=== PATIENT | female | born 1970 | race Two or more races ===

== ENCOUNTER → 2024-10-30 | Outpatient (CLI) | payer MEDICAID, SELFPAY ==
--- NOTE | 2024-10-30 12:52 | XR_ITS ---
Examination: PA lateral chest 2 views TECHNIQUE: Upright PA lateral chest 2 views Exam date and time: October 30, 2024 1259 hours INDICATIONS: Chronic hypertension diagnosis years FINDINGS: Normal heart size Lungs are clear. The osseous structures are intact IMPRESSION: No active disease
== END | disposition home or self-care (01) ==
PROVIDERS: PCP Nurse Practitioner Family; Referring Provider Nurse Practitioner Family; Visit Provider Nurse Practitioner Family
DX: I10 Essential (primary) hypertension (principal)
CPT/HCPCS: 71046

== ENCOUNTER 2024-11-06 11:55 | Day surgery (SDC) | payer MEDICAID, SELFPAY ==
--- NOTE | 2024-11-03 06:58 | EKG_ITS ---
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
[2024-11-03 07:02] VITALS: BMI 25.1
[2024-11-03 08:45] LABS: Alanine Aminotransferase 20 U/L (10-49); Albumin, Serum 4.8 gm/dL (3.5-5.0); Albumin/Globulin Ratio 1.7 (1.2-2.2); Alkaline Phosphatase 120 U/L (46-116); Anion Gap 7 (7-16); Aspartate Amino Transferase 19 U/L (0-34); BUN/Creatinine Ratio 18 Ratio (12-20); Bilirubin,Total 0.7 mg/dL (0.3-1.2); Blood Urea Nitrogen 14 mg/dL (9-23); Carbon Dioxide 30.6 mMol/L (20.0-31.0); Chloride 104 mMol/L (98-107); Creatinine (Component) 0.8 mg/dL (0.6-1.3); Estimated Creatinine Clearance 68.2 mL/min (>60); Globulin 2.8 gm/dL (2.3-3.5); Glucose 97 mg/dL (74-106); Osmolality,Calculated 283 (275-295); Potassium 3.9 mMol/L (3.4-5.1); Sodium 142 mMol/L (136-145); Total Protein 7.6 gm/dL (5.7-8.2); eGFR > 60 See Note
[2024-11-03 09:03] LABS: Basophils % (Auto) 0 % (0-2.5); Eosinophils # (Auto) 0.1 Thou/mm3 (0.0-0.5); Eosinophils % (Auto) 2 % (0-10); Hematocrit 38.8 % (36.0-46.0); Hemoglobin 13.6 g/dL (12.0-16.0); Immature Granulocytes % (Auto) 0 % (0-0); Immature Granulocytes Auto 0.02 Thou/mm3 (0.00-0.00); Lymphocytes # (Auto) 1.6 Thou/mm3 (1.0-4.8); Lymphocytes % (Auto) 31 % (10-50); Mean Corpuscular HGB Conc 35.1 g/dl (31.0-37.0); Mean Corpuscular Hemoglobin 30.1 pg (25.0-35.0); Mean Corpuscular Volume 86 fL (80-100); Monocytes # (Auto) 0.4 Thou/mm3 (0.0-0.8); Monocytes % (Auto) 7 % (0-12); Neutrophils % (Auto) 59 % (37-80); Nucleated Red Blood Cell % 0 /100 WBC (0); Platelet Count 280 Thou/mm3 (140-440); RDW Standard Deviation 38.7 fL (36.4-46.3); Red Blood Count 4.52 Miln/mm3 (4.00-5.20)
[2024-11-03 09:11] LABS: Partial Thromboplastin Time 25.1 Seconds (22.0-36.0); Prothrombin Time 10.7 Seconds (9.0-12.2)
[2024-11-06] VITALS (8 sets, daily range): BP systolic 134–174; BP diastolic 80–99; PULSE 60–106; RESP 15–20; TEMP 36.2–36.6; O2SAT 95–98; BMI 24.5
[2024-11-06] MEDS: RINGERS LACTATED 1000 ML 1,000 ML 20 ML IV (12:36)
--- NOTE | 2024-11-06 16:35 | SUR.PHASEI ---
Pt. arrived to recovery via gurney, eyes closed, responds to verbal commands, VSS, no c/o pain or nausea at this time, pt. allowed to rest, dressing to left shoulder, sutures, adaptic, fluffs, abd. pad and metaport tape in place, no active bleeding noted, arm sling in place, pt. able to move fingers on left hand, cap refill <3 seconds, report received from Ramon NAILS and Dr. Rubin.
--- NOTE | 2024-11-06 16:38 | ESOP_ITS ---
Date of Procedure 11/06/24 Pre Op Diagnosis 1. Left rotator cuff tear 2. Left shoulder impingement syndrome Post Op Diagnosis Same Procedure 1. Excision lateral end of the clavicle 2. Excision coracoacromial ligament 3. Acromioplasty 4. Repair of rotator cuff 5 manipulation under anesthesia Findings Refer dictation Procedure Description The patient was given general endotracheal anesthesia. Once satisfactory anesthesia was achieved patient was put in about 45?? sitting position with sandbag underneath the left shoulder blade. The part was thoroughly prepped and draped. Shoulder block was also given. A skin incision was made at the AC joint extending proximally towards the neck for a half inches and distally towards the arm for about couple of inches. Deeper dissection was carried out. Bleeding vessels were electrocoagulated as and when encountered. The soft tissue was reflected. Following that AC joint was exposed and AC joint was exposed. The deltoid muscle was reflected from the anterior and lateral aspect of the acromial process. There was a big osteophytes at the anterior and and lateral aspect of the acromial process. The anterior 2 mm and lateral 1 mm of the acromial process along with osteophyte was excised with the help of saw. Following that a periosteal elevator was placed underneath the lateral end of the clavicle and lateral 3-4 mm was excised. The coracoacromial ligament was removed. With the help of curved osteotome the undersurface of the Acromial processes was chiseled out. That made more room between the superior surface of the head of the humerus and undersurface of the acromial process. Following that the rotator cuff was inspected. It revealed big oval tear, however most of the fibers were attached to the greater tuberosity. Wound was irrigated with antibiotic solution every 4-5 minutes. The left shoulder was manipulated at this time. The rotator cuff tear was repaired with 2-0 Vicryl. 2 drill holes were made on the acromial process and deltoid muscle was stitched back to it. Some reinforcement sutures were placed. The subcutaneous tissue was then closed with the help of 2-0 Vicryl and 3-0 Vicryl in layers. The skin was closed with kristopher. About 18 mL of neuropen was injected at the skin incision site. After cleaning the wound with hydrogel proximal solution and sterile dressing was applied. Patient was taken to the recovery room in good condition. Estimated blood loss 10 mL. Prognosis in this case is good. Anesthesia GETA and other Pathology / specimen None Estimated Blood Loss 10 Surgeon Feroz Zamarripa MD Surgical Staff Operation Date: 11/06/24 15:00 Case Staff Anesthesiologist: Anuj Rubin RNbrazing machine operator: Roula Estrella
--- NOTE | 2024-11-06 17:40 | SUR.PHASEII ---
Pt. meets criteria for discharge, VSS, no c/o pain or nausea, dressing to left shoulder CDI, arm sling in place, IV discontinued without complications, discharge instructions provided to pt. and pt.'s with use of program rep services, pt. and pt.'s verbalized understanding, all questions answered. Pt. escorted to vehicle via w/c with all of belonging by staff.
--- NOTE | 2024-11-06 18:48 | ESHP_ITS ---
RE: TRUDI MENA : 1970 DATE OF ADMISSION: 11/06/2024 REASON FOR ADMISSION: The patient came to my office on 11/05/2024 for detailed preop history and physical examination. HISTORY OF PRESENTING COMPLAINT: The patient presented to me with history of severe pain in the left shoulder joint. The patient stated that pain started when she lifted a box full of plants and felt snap. Since then, the patient has got pain. Range of motion is restricted. Patient graded intensity of pain is 10/10. The patient is unable to sleep. The patient's quality of life as well as activities of daily living is affected. The patient wants something to be done about it. PAST MEDICAL HISTORY: The patient has history of high blood pressure. No history of diabetes mellitus, asthma, seizure, chest pain, myocardial infarction, or bleeding disorder. PAST SURGICAL HISTORY: Include cholecystectomy. DRUG HISTORY: The patient is on valsartan, meloxicam, and baclofen. ALLERGIES: NIL KNOWN. FAMILY HISTORY AND SOCIAL HISTORY: The patient denies smoking, drinking and is not working. PHYSICAL EXAMINATION: GENERAL: Normal built lady. The patient's BMI is 24.14. VITAL SIGNS: Pulse 72 per minute, blood pressure is 148/92. NECK: Soft, supple. No masses felt. Trachea is centrally placed. CARDIOVASCULAR SYSTEM: First and second heart sounds normal. No murmur heard. RESPIRATORY SYSTEM: Bilateral vesicular breath sounds. CHEST: Clear. ABDOMEN: Soft. No masses felt. Bowel sounds present. BREASTS: Breast examination is not indicated in this case. The patient is advised to see the family physician for rectal examination. EXTREMITIES: Left shoulder examination revealed 2+ tenderness at AC joint. Active range of motion is 0 to 90 degrees of abduction and 0 to 80 degrees of forward flexion. Yael test is positive. Drawer arm test is positive. Impingement test is also positive. DIAGNOSTIC DATA: MRI of the left shoulder was obtained on 07/29/2024. It revealed 20 mm full-thickness tear of the rotator cuff. There is atrophy of the supraspinatus as well as infraspinatus tendon. There are degenerative joint disease changes at AC joint. ASSESSMENT AND PLAN: Since the patient is symptomatic, therefore, left rotator cuff repair with Ishan procedure was discussed and advised. With the help of pictures, diagram and shoulder model, it was explained to her in detail. The risks with anesthesia were explained and that includes, but not limited to reaction to anesthetic agents, cardiac arrest or rarely it might be fatal. Risks with operation includes infection and if that happens, the patient will need further surgical procedure. Other risks include delayed healing, wound dehiscence, etc. Indeed, the physical therapy is a very important component for successful outcome of the procedure and full cooperation helps a lot. No guarantee is given regarding outcome of the procedure and/or pain relief and the patient is fully aware of that. The patient is okay to proceed with surgery. Surgery is booked for 11/06/2024. Appropriate lab was done. DT: 15:29:40 TT: 18:36:00 Ref: [id number] - TID: [id number]
--- NOTE | 2024-11-09 12:11 | ESPR_ITS ---
Documentation for date of: 11/09/24 POST ANESTHESIA NOTE: Patient had general LMA anesthesia and L interscalene nerve block for L rotator surgery on 11/06/24. I just called and spoke with her on the phone via historic interpreter and she denied any problems from anesthesia and was thankful. Anuj Rubin MD Anesthesia Progress Note Progress Note Most recent Vital Signs: Last Vital Signs Temp 97.2 F 11/06/24 17:15 Pulse 80 11/06/24 17:25 Resp 16 11/06/24 17:25 BP 150/83 H 11/06/24 17:25 Pulse Ox 96 11/06/24 17:25
== END 2024-11-06 17:40 | disposition home or self-care (01) ==
PROVIDERS: Anesthesiology; PCP Family Medicine; Referring Provider Orthopaedic Surgery; Visit Provider Orthopaedic Surgery
PROC: (CPT 23412; principal; 2024-11-06 15:00)
DX: M75.102 Unspecified rotator cuff tear or rupture of left shoulder, not specified as traumatic (principal); M75.42 Impingement syndrome of left shoulder; Z90.49 Acquired absence of other specified parts of digestive tract; Z01.810 Encounter for preprocedural cardiovascular examination
CPT/HCPCS: 23412; 23120; 36415; 80053; 85025; 85610; 85730; 93005; A4217; A4649; J0690; J1100; J1580; J2250; J2704; J2765; J2795; J3010; J3490; J7120

== ENCOUNTER 2024-11-12 12:43 | Emergency (ER) | payer MEDICAID, SELFPAY ==
[2024-11-12 12:47] VITALS: BP 110/78; PULSE 66; RESP 14; TEMP 36.8; O2SAT 95
--- NOTE | 2024-11-12 13:00 | XR_ITS ---
Examination: CTA chest with intravenous contrast 2-D reconstructions 3-D reconstructions, vascular Date and time of exam: November 12, 2024 1408 hours INDICATIONS: Shortness of breath syncopal episode today CTDI: vol (mGy) 12.43 DLP: (mGycm) 269.16 Technique: Multiple axial sections of the thorax have been obtained. 3 mm slice thickness, from below the hemidiaphragms to above the apices of the lungs. Mediastinal and lung density settings have been obtained. 2-D sagittal and coronal reconstructions. 3-D angiographic renderings, 3-D volume renderings, 3D post processing, vascular maximum intensity projections obtained. Contrast administered is 100 cc Isovue-370. Low dose protocols were performed. One or more of the following dose reduction techniques were used; automated exposure control, adjustment of the mA and/or KV according to patient size, use of iterative reconstruction technique. Findings: No thoracic aortic aneurysm dilatation or dissection Pulmonary artery segments are not enlarged No pulmonary artery filling defects No paratracheal tracheobronchial or bronchopulmonary adenopathy No aspiration pneumonia, no pulmonary edema Minor atelectasis left base No visualized liver or splenic lesion Absent gallbladder No pancreatic or adrenal mass IMPRESSION: Negative for pulmonary artery emboli No aspiration pneumonia
--- NOTE | 2024-11-12 13:00 | XR_ITS ---
Examination: AP chest single view Technique one AP portable upright chest single view Exam date and time: November 12, 2024 1340 hours INDICATIONS: Onset shortness of breath today. FINDINGS: Normal heart size Lungs are clear. The osseous structures are intact IMPRESSION: No active disease
--- NOTE | 2024-11-12 13:00 | EKG_ITS ---
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
--- NOTE | 2024-11-12 13:01 | XR_ITS ---
Examination: Duplex scan of the upper extremity, unilateral left Date and time of exam: November 12, 2024 1419 hours INDICATIONS: Shoulder surgery 6 days ago followed by shoulder pain and swelling Technique: Duplex scan of the extremity veins using B-mode/grayscale imaging and Doppler spectral analysis and color flow Attention is directed to internal echogenicity, compression and augmentation involving these veins, color flow assessment, spectral analysis Findings: Major deep venous structures in the extremity demonstrate normal course and caliber. There is no evidence of deep vein thrombosis. Normal color flow and spectral analysis Impression: Negative for DVT..
--- NOTE | 2024-11-12 13:01 | PD.EDCHEST ---
ED Chest Pain RME/HPI General Chief Complaint: Chest Pain Stated Complaint: CHEST PAIN/ SYNCOPE EPISODE Time Seen by Provider: 11/12/24 12:48 Arrival date/time: 11/12/24 12:43 RME / HPI RME / HPI narrative: This section includes all my notes and documentations, including HPI, PE, and ED course.? Kurtis Flannery MD HPI: 54 year old female with history of hypertension and recent repair of left rotator cuff tear on 11/06/[address] Zamarripa presents to the ED BIBA from ortho Dr. Zamarripa's office for evaluation of chest pain today. Per medics, staff at the office report patient was there for a dressing change and while changing dressing, the patient had a near syncopal episode. Shortly after began complaining of severe 10/10 pressure like chest pain, located most to the center of chest that radiates up her neck and through to her back. Medics state they administered two 81mg Aspirin, 1 Nitro paste, and 1SL Nitro with very little improvement. While in the ED patient reports her pain is 9/10. Denies fevers, chills, sweats, nausea, abdominal pain. No other complaints. ROS: All negative except as documented in HPI. Physical Exam: General:? Alert and oriented.? In severe pain. Eyes:? Conjunctivae and lids clear.? ENT:? No nasal congestion.? Neck:? Supple.? Heart:? RRR.? Chest: Palpation of the anterior chest reproduces her pain. Lungs:? No respiratory distress.? Good air movement.? No rhonchi, wheezing, rales.?? Abdomen:? Soft and nontender.?? Legs:? No clubbing, cyanosis, edema.? Skin:? Warm and dry.?? Neuro:? Alert and oriented X 3.?? I reviewed all diagnostic test results. My interpretation of the EKG is?NSR (63 bpm) with no ST-T changes. My interpretation of the chest x-ray is no active disease. My review of the venous doppler US report is negative for DVT. My review of the chest CTA report is?Negative for pulmonary artery emboli. My review of the head CT report is Negative for acute hemorrhage, mass effect or midline shift. Blood tests and urine tests?unremarkable. At this point, diagnoses include?musculoskeletal chest pain. Treatment here included?IV fluid and Zofran and Dilaudid. Significant improvement noted. Recommended supportive care. Based on my best medical judgment, made decision no further evaluation or treatment indicated at this time.? Patient understands and agrees to the discharge instructions customized and printed, see below. Discharge instructions from Dr. Flannery: 1. After extensive evaluation, there is no life-threatening condition.? Such as stroke heart attack or pulmonary embolism (blood clots in your lungs) or pneumothorax (collapsed lung) or blood clots in your arm. 2. Your pain is originating from the chest wall and not from an internal organ.? The chest wall has many joints and muscles between the ribs, so sprains and strains are common.?? 3. Apply ice or heat if helpful.? Tylenol/ibuprofen as needed. 4. See a private doctor on 03/16/24. To make sure there is no serious underlying heart condition, ask to help you get more tests for your heart that cannot be done here in the ER.? Such as Holter Monitor (cardiac monitoring at home from a day to even a month), heart stress test (on treadmill or with medication), echocardiogram (imaging of your heart structures), heart catherization (checking for blockages in your heart arteries), and a referral to see a Preschool Teacher Aide.? 5. Seek immediate medical care with worsening or with any concerns.?? Kurtis Flannery MD Related Data Home Medications ?Medication ?Instructions ?Recorded ?Confirmed valsartan 160 mg tablet 160 mg PO DAILY 11/03/24 11/06/24 Previous Rx's ?Medication ?Instructions ?Recorded hydrocodone 5 mg-acetaminophen 325 2 tab PO TID PRN pain #30 tabs 11/12/24 mg tablet Allergies Allergy/AdvReac Type Severity Reaction Status Date / Time No Known Allergies Allergy Verified 11/12/24 13:09 Review of Systems Review of Systems Systems Reviewed: All systems reviewed, normal except as documented Past Medical History Past Medical History CARDIAC: Positive Cardiac Disorders, Hypertension and Hypotension GENITOURINARY: Positive Genitourinary Disorders and Kidney Stones (many yrs ago) REPRODUCTIVE: Positive Previous Pregnancies MUSCULOSKELETAL: Positive Musculoskeletal Disorders and Arthritis OTHER HISTORY: Positive Chicken Pox Family History FAMILY HISTORY: Positive Family Cardiac Disorders and Family Surgery Surgical History SURGICAL: Positive of Shoulder Sx (L ROTATOR CUFF) and Tubal Ligation Social History SMOKING STATUS: Never smoker ED Exam Narrative Physical exam: As noted in HPI Course Quality Measures none Orders Category Date Time Status CT Screening NOW Care 11/12/24 13:00 Completed EKG (ED ONLY) *Do not use* NOW Care 11/12/24 13:00 Completed Saline [Insert IV] NOW Care 11/12/24 12:59 Completed Straight [In and Out Catheter] X1 Care 11/12/24 12:[address] angio chest Stat Exams 11/12/24 13:[address] head/brain wo con Stat Exams 11/12/24 14:03 Completed EKG (ED Only) Stat Exams 11/12/24 13:00 Draft US venous doppler UE LT Stat Exams 11/12/24 13:01 Completed XR chest 1V portable Stat Exams 11/12/24 13:00 Completed BNP [B-Type Natriuretic Peptide] Stat Lab 11/12/24 13:39 Completed CBC Stat Lab 11/12/24 13:39 Completed CMP [Comprehensive Metabolic Panel] Stat Lab 11/12/24 13:39 Completed D-Dimer Stat Lab 11/12/24 13:39 Completed Magnesium Stat Lab 11/12/24 13:39 Completed Troponin I Stat Lab 11/12/24 13:39 Completed UA, C/S IF [Urinalysis, C/S if Indicated] Stat Lab 11/12/24 15:16 Completed Urine Culture Stat Lab 11/12/24 15:16 Received HYDROmorphone INJ [Dilaudid Inj] Med 11/12/24 12:59 Discontinued 1 mg IVP X1 ONE Ondansetron Inj [Zofran Inj] Med 11/12/24 12:59 Discontinued 4 mg IV X1 ONE Sodium Chloride 0.9% 1000 ml [Ns] 1,000 ml Med 11/12/24 12:59 Discontinued IV 999 mls/hr Vital Signs Vital signs: Vital Signs Temperature 98.2 F 11/12/24 12:47 Pulse Rate 66 11/12/24 12:47 Respiratory Rate 14 11/12/24 12:47 Blood Pressure 110/78 11/12/24 12:47 Pulse Oximetry (%) 95 11/12/24 12:47 Oxygen Delivery Method Room Air 11/12/24 12:47 Pulse ox is 95% on room air which is adequate. Chest Pain MDM Narrative MDM Narrative:: IYareli, am scribing for and in the presence of Dr. Flannery. Patient data External records reviewed:: [facility] previous records (I reviewed operative report from 11/06/2024) and EMS form Clinical information provided by:: patient and EMS Social determinants that could affect healthcare access:: none Patient has the following chronic illnesses:: hypertension and recent repair of left rotator cuff tear on 11/06/[address] Zamarripa How is presenting disease/condition affected by chronic disease/condition?: exacerbated by Evaluation data The following diagnostics were reviewed and interpreted by me:: lab results, radiology exam(s) and EKG tracing(s) (My interpretation of the EKG: NSR (63 bpm) with no ST-T changes. Kurtis Flannery MD) Lab and/or radiology exams considered but not ordered:: None Interpretation Summary: Normal diagnostics Medications / Prescriptions Medications or Prescriptions considered but not ordered:: None Medication administrations:: Medication Administration History Discontinued Medications Hydromorphone HCl (Hydromorphone Inj 2 Mg/Ml Vial) 1 mg IVP X1 ONE Stop: 11/12/24 13:00 Last Admin: 11/12/24 16:06 Dose: Not Given Documented By: Non-Admin Reason: Patient Refused Sodium Chloride (Ns) 1,000 mls @ 999 mls/hr IV .Q1H1M ONE Stop: 11/12/24 13:59 Last Infusion: 11/12/24 16:50 Dose: Infused Documented By: Admin: 11/12/24 13:50 Dose: 999 mls/hr Documented By: Ondansetron HCl (Ondansetron Inj 2 Mg/Ml Inj 2 Ml) 4 mg IV X1 ONE; Protocol Stop: 11/12/24 13:00 Last Admin: 11/12/24 13:50 Dose: 4 mg Documented By: Patient given IV fluids and zofran and dilaudid Consultations Consultation(s) initiated? (list below): Yes Consultation #1 (Physician, Specialty, Details): I spoke with patients ortho Dr. Zamarripa, recommended outpatient follow-up with him on 11/16/2024. Diagnosis Chest Pain Differential Diagnosis: pneumothorax, stable angina, unstable angina pectoris, atypical chest pain, st elevation myocardial infarction, costochondritis, chest pain and biliary colic Most likely diagnosis given after review of the tests above:: Musculoskeletal chest pain Admission Indicated Admission indicated?: not indicated Explain why admission is indicated or not indicated:: Admission criteria not met Admission Request Was there a request for admission?: No Disposition Plan Disposition Plan: Discharge Discharge Attestation Discharge Attestation: The patient and all family members were given an opportunity to ask questions and understood the discharge instructions. Discharge instructions specifically effects, indications for sooner follow up or return to the emergency department, and the expected course of current diagnosis. Patient condition: Stable Discharge Plan Plan Patient Disposition: HOME (Self Care) Prescriptions/Referrals Prescriptions/Med Rec: New hydrocodone-acetaminophen 5-325 mg tablet 2 tab PO TID MDD 6 PRN (Reason: pain) Qty: 30 0RF No Action valsartan 160 mg tablet 160 mg PO DAILY Patient Comments: TAKE 1 TABLET BY MOUTH EVERY DAY Referrals: Trisha Flannery [Primary Care Provider] - In 1 week Problem List Clinical Impression: Musculoskeletal chest pain Patient/Caregiver Discharge Instructions Discharge Activity: activity as tolerated Education Materials: ED Chest Pain, Noncardiac Additional Instructions: Discharge instructions from Dr. Flannery: 1. After extensive evaluation, there is no life-threatening condition.? Such as stroke heart attack or pulmonary embolism (blood clots in your lungs) or pneumothorax (collapsed lung) or blood clots in your arm. 2. Your pain is originating from the chest wall (especially after your recent surgery) and not from an internal organ.? 3. Apply ice or heat if helpful.? Carson for severe pain. 4. Dr. Zamarripa wants to see you on 11/16/2024 for recheck and further care. 5. Seek immediate medical care with worsening or with any concerns.?? Instrucciones de kamran del Dr. Flannery: 1. Despu?s de nina evaluaci?n exhaustiva, no hay ninguna afecci?n que ponga en peligro la celina. Eric un derrame cerebral, un ataque card?aco o nina embolia pulmonar (co?gulos de alicia en los pulmones) o un neumot?rax (colapso pulmonar) o co?gulos de alicia en el brazo. 2. Guevara dolor se origina en la pared tor?cica (especialmente despu?s de guevara cirug?a reciente) y no en un ?rgano interno. 3. Aplique hielo o calor si es ?til. Carson para dolor intenso. 4. El Dr. Zamarripa quiere verlo el 12/13/2024 para volver a controlarlo y brindarle m?s atenci?n. 5. Busque atenci?n m?dica inmediata si empeora o si tiene alguna inquietud. Print Language: Grenadian Stand Alone Forms: Zayra Award Info., Patient Portal Info Letter
[2024-11-12 13:03] VITALS: PULSE 80; RESP 28; O2SAT 97
[2024-11-12 13:27] VITALS: BP 101/67; PULSE 61; RESP 19; TEMP 36.8; O2SAT 100; BMI 25.6
[2024-11-12] MEDS: ONDANSETRON INJ 2 MG/ML INJ 2 ML 4 MG IV (13:50)
[2024-11-12] MEDS: SODIUM CHLORIDE 0.9% 1000 ML 1,000 ML 999 ML IV (13:50)
--- NOTE | 2024-11-12 14:03 | XR_ITS ---
Examination: CT brain head without contrast. 2-D sagittal coronal reconstructions Date and time of exam:November 12, 2024 1605 hours INDICATIONS: Syncopal episode today CTDI: vol (mGy):49.6 DLP: (mGycm):880 Technique: Multiple CT axial sections of the brain have been obtained, 5 mm slice thickness. Contrast has not been administered. 2-D sagittal, coronal reconstructions have been obtained Low dose protocols were performed. One or more of the following dose reduction techniques were used; automated exposure control, adjustment of the mA and/or KV according to patient size, use of iterative reconstruction technique. Findings: No significant ventricular enlargement. 17 mm right maxillary retention cyst Intra-axial or extra-axial hemorrhage density is not seen. No mass effect or midline shift Basal cisterns are not remarkable. Fourth ventricle is midline. Cranial vault intact. Impression: Negative for acute hemorrhage, mass effect or midline shift If symptoms persist, consider brain MRI MRA without contrast follow-up
[2024-11-12 14:07] LABS: Basophils % (Auto) 0 % (0-2.5); Eosinophils # (Auto) 0.1 Thou/mm3 (0.0-0.5); Eosinophils % (Auto) 1 % (0-10); Hematocrit 37.5 % (36.0-46.0); Immature Granulocytes % (Auto) 1 % (0-0); Immature Granulocytes Auto 0.04 Thou/mm3 (0.00-0.00); Lymphocytes # (Auto) 1.5 Thou/mm3 (1.0-4.8); Lymphocytes % (Auto) 21 % (10-50); Mean Corpuscular HGB Conc 34.7 g/dl (31.0-37.0); Mean Corpuscular Hemoglobin 30.2 pg (25.0-35.0); Mean Corpuscular Volume 87 fL (80-100); Monocytes # (Auto) 0.4 Thou/mm3 (0.0-0.8); Monocytes % (Auto) 5 % (0-12); Neutrophils # (Auto) 5.1 Thou/mm3 (1.8-7.7); Neutrophils % (Auto) 72 % (37-80); Nucleated Red Blood Cell % 0 /100 WBC (0); Platelet Count 290 Thou/mm3 (140-440); Red Blood Count 4.31 Miln/mm3 (4.00-5.20); White Blood Count 7.1 Thou/mm3 (3.6-11.0)
[2024-11-12 14:19] LABS: B-Type Natriuretic Peptide < 20 pg/mL (0-100)
[2024-11-12 14:22] LABS: Alanine Aminotransferase 22 U/L (10-49); Albumin, Serum 4.3 gm/dL (3.5-5.0); Albumin/Globulin Ratio 1.7 (1.2-2.2); Alkaline Phosphatase 119 U/L (46-116); Anion Gap 7 (7-16); Aspartate Amino Transferase 21 U/L (0-34); BUN/Creatinine Ratio 17 Ratio (12-20); Bilirubin,Total 0.5 mg/dL (0.3-1.2); Blood Urea Nitrogen 12 mg/dL (9-23); Calcium 9.1 mg/dL (8.3-10.6); Calcium (Corrected) 9.1 mg/dL (8.5-10.1); Carbon Dioxide 27.3 mMol/L (20.0-31.0); Chloride 106 mMol/L (98-107); Creatinine (Component) 0.7 mg/dL (0.6-1.3); Estimated Creatinine Clearance 78.6 mL/min (>60); Globulin 2.5 gm/dL (2.3-3.5); Glucose 97 mg/dL (74-106); Magnesium 1.8 mg/dL (1.6-2.6); Osmolality,Calculated 279 (275-295); Potassium 4.2 mMol/L (3.4-5.1); Sodium 140 mMol/L (136-145); Total Protein 6.8 gm/dL (5.7-8.2); Troponin I < 0.002 ng/mL (0.0-0.045); eGFR > 60 See Note
[2024-11-12 14:27] LABS: D-Dimer 2780 ng/mL (<600)
[2024-11-12 14:35] VITALS: BP 130/78; PULSE 65; RESP 19; TEMP 36.7; O2SAT 95
[2024-11-12 15:29] LABS: Collection Type, Urine Clean Catch
[2024-11-12 15:37] LABS: Bilirubin,Urine Negative (Negative); Blood,Urine Negative (Negative); Clarity,Urine Turbid (Clear/Hazy); Color,Urine Lt-Yellow (Lt Yel-Yel); Glucose, Urine Negative (Negative); Hyaline Casts,Urine < 1 /hpf (0-1); Ketones,Urine Negative (Negative); Leukocyte Esterase,Urine Positive (Negative); Nitrite,Urine Negative (Negative); PH,Urine 7.5 (5.0-7.0); Protein,Urine Trace (Neg - Trace); RBC,Urine 1 /hpf (0-3); Specific Gravity,Urine 1.015 (1.001-1.035); Squamous Epithelial Cell,Urine 9 /hpf (0-5); Urobilinogen,Urine Negative mg/dL (0.0-1.0); WBC,Urine 26 /hpf (0-5)
[2024-11-12 15:45] LABS: Culture Indicated,Urine Yes
[2024-11-12 16:23] VITALS: BP 139/88; PULSE 77; RESP 17; TEMP 36.6; O2SAT 97
== END 2024-11-12 17:48 | disposition home or self-care (01) ==
PROVIDERS: Emergency Provider Emergency Medicine; PCP Nurse Practitioner Family
DX: R07.89 Other chest pain (principal); R55 Syncope and collapse; I10 Essential (primary) hypertension
CPT/HCPCS: 36415; 70450; 71045; 71275; 80053; 81001; 83735; 83880; 84484; 85025; 85379; 87086; 93005; 93971; 96361; 96374; 99285; A4649; J2405; J7030; Q9967

== ENCOUNTER → 2025-02-11 | Outpatient (CLI) | payer MEDICAID, SELFPAY ==
--- NOTE | 2025-02-11 16:00 | XR_ITS ---
Examination: Pelvic ultrasound, transabdominal, complete Technique: Transabdominal ultrasound of the pelvis performed using grayscale imaging Date and time of exam: February 11, 2025 1552 hours INDICATIONS: Intermittent right lower abdominal pelvic pain beginning 6 months ago FINDINGS: Uterus 8.7 cm endometrial stripe 0.5 cm No uterine mass Multiple views obscured by bowel gas IMPRESSION: Negative for uterine mass
== END | disposition home or self-care (01) ==
LOC: CDIM 15:31
PROVIDERS: PCP Nurse Practitioner Family; Referring Provider Nurse Practitioner Family; Visit Provider Nurse Practitioner Family
DX: R10.31 Right lower quadrant pain (principal)
CPT/HCPCS: 76856

== ENCOUNTER → 2025-02-16 | Outpatient (CLI) | payer MEDICAID, SELFPAY ==
--- NOTE | 2025-02-16 10:15 | XR_ITS ---
Examination: Screening digital mammography, bilateral Computer aided detection 3-D breast Tomosynthesis, bilateral Date and time of exam: February 16, 2025 0958 hours Compared to mammograms dating to February 07, 2010 Indication: Screening Technique: Nonmagnified MLO, CC views of the breasts to been obtained, reconstructed from 3-D Tomosynthesis images. R2 computer aided detection program utilized for evaluation of suspicious masses and/or abnormal calcifications. 3-D Tomosynthesis images obtained. Findings: The breasts are heterogeneously dense, which may obscure small masses Grouped microcalcifications upper outer right breast 18 mm focal asymmetry upper outer left breast Impression: BI-RADS Category 0: Incomplete: Need additional imaging evaluation Recommend follow-up magnification spot compression films of grouped microcalcifications upper outer right breast Recommend follow-up spot tomographic views of 18 mm focal asymmetry upper outer left breast Recommend bilateral breast sonography follow-up to complete workup
== END | disposition home or self-care (01) ==
LOC: CDIM 09:50
PROVIDERS: PCP Nurse Practitioner Family; Referring Provider Nurse Practitioner Family; Visit Provider Nurse Practitioner Family
DX: Z12.31 Encounter for screening mammogram for malignant neoplasm of breast (principal); R92.0 Mammographic microcalcification found on diagnostic imaging of breast; N64.89 Other specified disorders of breast
CPT/HCPCS: 77063; 77067

== ENCOUNTER → 2025-04-20 | Outpatient (CLI) | payer MEDICAID, SELFPAY ==
--- NOTE | 2025-04-20 | XR_ITS ---
Examination: Lumbar spine 3 views Technique one AP lateral coned lateral lower lumbar spine 3 views Date and time: April 20, 2025 1133 hours INDICATIONS: Right-sided lower back pain beginning 6 months ago. FINDINGS: Moderate osteopenia. No lumbar fracture Mild disc narrowing L5-S1. No spondylolisthesis IMPRESSION: Mild disc narrowing L5-S1
== END | disposition home or self-care (01) ==
LOC: CDIM 11:13
PROVIDERS: PCP Family Medicine; Referring Provider Nurse Practitioner Family; Visit Provider Nurse Practitioner Family
DX: M48.07 Spinal stenosis, lumbosacral region (principal); G89.29 Other chronic pain
CPT/HCPCS: 72100